=== PATIENT | male | born 2000 | race African-American/Black ===

== ENCOUNTER 2018-11-02 12:28 | Emergency (ER) | payer MEDICAID ==
[~2018-11-02] VITALS: Ht 180.3 cm; Wt 77.0 kg
[2018-11-02] MEDS ORDERED: IBUPROFEN 400MG TABLET PO ONE (14:15)
[2018-11-02 15:19] VITALS: BP 105/62
== END 2018-11-02 15:24 | disposition home or self-care (01) ==
LOC: ER 12:28
DX: M25.511 Pain in right shoulder (principal); Z98.890 Other specified postprocedural states
CPT/HCPCS: 73030; 99283